=== PATIENT | male | born 1960 | race Two or more races ===

== ENCOUNTER 2017-08-02 09:29 | Emergency (ER) | payer SELFPAY ==
[2017-08-02 09:36] VITALS: RESP 16
--- NOTE | 2017-08-02 09:49 | EDPHY ---
H & P Stated Complaint: etoh/needs med clear for [facility] Time Seen by Provider: 08/02/17 09:49 - Personal History Current Tetanus/Diphtheria Vaccine: No - Medical/Surgical History Hx Asthma: No Hx Chronic Respiratory Disease: No Hx Diabetes: No Hx Cardiac Disease: No Hx Renal Disease: No Hx Cirrhosis: No Hx Alcoholism: Yes Hx HIV/AIDS: No Hx Splenectomy or Spleen Trauma: No Other PMH: denies - Social History Smoking Status: Never smoked Constitutional: Initial Vital Signs Temperature (C) 36.9 C 08/02/17 09:33 Heart Rate 85 08/02/17 09:33 Respiratory Rate 16 08/02/17 09:33 Blood Pressure 142/92 H 08/02/17 09:33 O2 Sat (%) 97 08/02/17 09:33 O2 Delivery Mode Room Air Allergies/Adverse Reactions: No Known Allergies Allergy (Unverified 08/02/17 09:33) Home Medications: Medication Instructions Recorded NK [No Known Home Meds] 08/02/17 Medical Decision Making ED Course/Re-evaluation: CHIEF COMPLAINT: Stomach discomfort HISTORY OF PRESENT ILLNESS: The patient is a 57 year old alcoholic arriving from the [facility] for medical clearance secondary to stomach complaints. He has been drinking heavily for the last week. Patient denies any injuries, denies loss of consciousness, denies any recent trauma. Patient denies co-ingestion. His last drink was two hours ago. He complains of nausea and discomfort, but no abdominal pain. He denies fever, vomiting, diarrhea, or other associated symptoms. REVIEW OF SYSTEMS: A 10 point review of systems was performed and is negative with the exception of the elements mentioned in the history of present illness. PHYSICAL EXAM: General Appearance: Alert, well hydrated, appropriate, and non-toxic appearing. Head: Atraumatic without scalp tenderness or obvious injury Eyes: Pupils equal, round, reactive to light and accommodation, EOMI, no trauma , no injection. Nose: Atraumatic, no rhinorrhea, clear. Throat: Mucus membranes moist. Neck: Supple, nontender, no lymphadenopathy. Respiratory: No retractions, no distress, no wheezes, and no accessory muscle use. Lungs are clear to auscultation bilaterally. Cardiovascular: Regular rate and rhythm, no murmurs, rubs, or gallops. Good capillary refill all extremities. Gastrointestinal: Abdomen is soft, nontender, non-distended, no masses, no rebound, no guarding, no peritoneal signs. Musculoskeletal: Normal active ROM of all extremities, atraumatic. Neurological: Alert, appropriate, and interactive. Nonfocal neuro exam. Skin: No rashes, good turgor, no nodules on palpation. PAST MEDICAL HISTORY: Denies PAST SURGICAL HISTORY: Noncontributory SOCIAL HISTORY: Greenlandic-speaking. Friend at bedside. DIFFERENTIAL DIAGNOSIS: The differential diagnosis for the patient's nausea and vomiting included but was not limited to gastroenteritis, gastritis, appendicitis, and medication side effect. MEDICAL DECISION MAKING: This patient is a 57 year old male presenting from the [facility] with stomach discomfort, mainly nausea. Physical exam unremarkable. The patient is likely suffering from gastritis secondary to alcohol use Administered GI cocktail for symptom relief. The patient is feeling better. He is medically cleared to return to the [facility]. Discussed treatment at the [facility] with the patient and his friend at bedside. Gave prescription for Librium. We will discharge the patient back to the [facility] in stable condition. - Data Points Medications Given: Discontinued Medications Al Hydroxide/Mg Hydroxide (Maalox Susp) 30 ml PO ONCE ONE Stop: 08/02/17 09:59 Last Admin: 08/02/17 10:02 Dose: 30 ml Chlordiazepoxide (Librium 25 Mg Prepack#6) 1 btl TAKEHOME EDNOW ONE Stop: 08/02/17 09:51 Last Admin: 08/02/17 10:02 Dose: 1 btl Hyoscyamine Sulfate (Levsin, Hyomax-Sl) 0.25 mg PO ONCE ONE Stop: 08/02/17 09:59 Last Admin: 08/02/17 10:02 Dose: 0.25 mg Lidocaine (Lidocaine 2% Viscous) 15 ml PO ONCE ONE Stop: 08/02/17 09:59 Last Admin: 08/02/17 10:02 Dose: 15 ml Departure - Departure Disposition: Home, Routine, Self-Care Clinical Impression: Gastritis due to alcohol without hemorrhage Qualifiers: Chronicity: acute Qualified Code(s): K29.20 - Alcoholic gastritis without bleeding Alcoholic intoxication Qualifiers: Complication of substance-induced condition: uncomplicated Qualified Code(s): F10.920 - Alcohol use, unspecified with intoxication, uncomplicated Condition: Good Instructions: Gastritis (ED), Alcohol Withdrawal (ED) Additional Instructions: Return to the [facility] as discussed. Referrals: NONE *PRIMARY CARE P,. [Unknown] - As per Instructions [facility] 24 Hours [Outside] - As per Instructions Print Language: Greenlandic Report Scribed for: Alex Duque Report Scribed by: Ines Scott Date of Report: 08/02/17 Time of Report: 10:00
[2017-08-02] MEDS ORDERED: CHLORDIAZEPOXIDE 25MG PREPK#6 BTL TAKEHOME ONE (09:50)
[2017-08-02] MEDS ORDERED: LIDOCAINE 2% VISCOUS 15 ML UDCUP PO ONE (09:58)
[2017-08-02] MEDS ORDERED: MAG HYDROX/AL HYDROX/SIMETH 30 ML UDCUP PO ONE (09:58)
[2017-08-02] MEDS ORDERED: HYOSCYAMINE SULFATE 0.125 MG TAB PO ONE (09:58)
[2017-08-02 10:12] VITALS: BP 138/87; PULSE 84; TEMP 97.9; O2SAT 98
== END 2017-08-02 10:40 | disposition home or self-care (01) ==
DX: K29.20 Alcoholic gastritis without bleeding (principal); F10.920 Alcohol use, unspecified with intoxication, uncomplicated

== ENCOUNTER 2019-04-14 22:13 | Emergency (ER) | payer OTHER ==
[2019-04-14] MEDS ORDERED: NS 1,000 ML IV ONE ×2 (22:39→23:52)
--- NOTE | 2019-04-14 22:40 | EDPHY ---
H & P Stated Complaint: ETOH Time Seen by Provider: 04/14/19 22:40 HPI/ROS: HPI CHIEF COMPLAINT: Abdominal pain. HISTORY OF PRESENT ILLNESS: Patient is a 59-year-old male, presents emergency room by private vehicle with his brother for abdominal pain. The patient predominantly speaks Jamaican. His brother bedside feels comfortable interpreting. The patient reports that for the past 3 days he has been binge drinking alcohol mainly Tequila. He is not anything to eat in 3 days. He has been drinking beer and Tequila. Multiple shots. Presents emergency room tonight due to upper abdominal pain. Mainly in his epigastric region after drinking alcohol. Denies any vomiting. Denies black tarry stools, denies vomiting blood. No fever. Patient denies any chest pain or shortness of breath. Past Medical History: Alcoholism daily alcohol use. Past Surgical History: No recent surgery Social History: Daily alcohol use. Unemployed. Family History: Noncontributory ROS REVIEW OF SYSTEMS: 10 Systems were reviewed and negative with the exception of the elements mentioned in the history of present illness. Exam Constitutional triage nursing summary reviewed, vital signs reviewed, awake/ alert. Eyes normal conjunctivae and sclera, EOMI, PERRLA. HENT normal inspection, atraumatic, moist mucus membranes, no epistaxis, neck supple/ no meningismus, no raccoon eyes. Respiratory clear to auscultation bilaterally, normal breath sounds, no respiratory distress, no wheezing. Cardiovascular rate normal, regular rhythm, no murmur, no edema, distal pulses normal. Gastrointestinal mild tender palpation epigastric, no rebound, no guarding, normal bowel sounds, no distension, no pulsatile mass. Genitourinary no CVA tenderness. Musculoskeletal no midline vertebral tenderness, full range of motion, no calf swelling, no tenderness of extremities, no meningismus, good pulses, neurovascularly intact. Skin pink, warm, & dry, no rash, skin atraumatic. Neurologic awake, alert and oriented x 3, AAOx3, moves all 4 extremities equally, motor intact, sensory intact, CN II-XII intact, normal cerebellar, normal vision, normal speech. Psychiatric normal mood/affect. Heme/Lymph/Immune no lymphadenopathy. Differential Diagnosis: Differential diagnosis includes but is not limited to and in no particular order: Alcohol-induced gastritis, esophagitis, alcohol intoxication peptic ulcer disease, alcohol-induced hepatitis, Bowel obstruction , appendicitis, gallbladder disease, diverticulitis, colitis, enteritis, perforated viscus, gastritis, GERD, esophagitis, urinary tract infection, pyelonephritis, kidney stones Medical Decision Making: Plan for this patient IV establishment IV fluid bolus , IV Pepcid, basic labs, CT scan abdomen pelvis with IV contrast to rule out acute intra-abdominal process. Re-evaluation: Alcohol 210. CT scan abdomen pelvis with IV contrast faxed me by direct Radiology at time 12: 09 a.m., no acute intra-abdominal pelvic abnormality.. Noted enlarged prostate. 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 I did explain that he has an osseous lesion of his left femur. This needs to be followed up closely with Orthopedics. 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 This is typically benign however does and can transition to malignancy. I will refer him to Orthopedic surgery for this. Additionally can cause pathological fractures. Discussed this at length with him and his brother at bedside. 0100AM: recording studio set up worker was used for review of systems, review of his history, discussion of workup in the emergency room and results of his CT scan result blood work. We used a recording studio set up worker to interpret his CT results with him and explained that he has a tumor of the left leg that needs follow-up. This has been explained in detail using recording studio set up worker. He understands comprehends. Brother at bedside understands as well. I offered the patient to go to detox, however he has declined this and wants to go home. His brother is comfortable with him going home. On re-examination at 1:04 a.m. Is abdomen is soft nontender. He is feeling much better after IV fluids IV Pepcid. 2:37 a.m. I discussed testing results the patient. Patient is requesting multiple times to go home. He is now sober. Answers questions appropriately feels much better after IV fluids IV Pepcid GI cocktail. Discussed at length his results of his CT scan results. He understands. We discussed return precautions return to the emergency room if worsening abdominal pain, fever, vomiting, not doing well. Source: Patient - Personal History Current Tetanus Diphtheria and Acellular Pertussis (TDAP): Unsure - Medical/Surgical History Hx Asthma: No Hx Chronic Respiratory Disease: No Hx Diabetes: No Hx Cardiac Disease: No Hx Renal Disease: No Hx Cirrhosis: No Hx Alcoholism: Yes Hx HIV/AIDS: No Hx Splenectomy or Spleen Trauma: No Other PMH: denies - Social History Smoking Status: Never smoked Constitutional: Initial Vital Signs Temperature (C) 36.5 C 04/14/19 22:18 Heart Rate 111 H 04/14/19 22:18 Respiratory Rate 16 04/14/19 22:18 Blood Pressure 152/80 H 04/14/19 22:18 O2 Sat (%) 93 04/14/19 22:18 O2 Delivery Mode Room Air Allergies/Adverse Reactions: No Known Allergies Allergy (Verified 04/14/19 22:18) Home Medications: Medication Instructions Recorded NK [No Known Home Meds] 08/02/17 Medical Decision Making - Data Points Laboratory Results: Laboratory Results 04/14/19 22:30 04/14/19 22:30 Medications Given: Discontinued Medications Al Hydroxide/Mg Hydroxide (Maalox Susp) 30 ml PO ONCE ONE Stop: 04/15/19 01:00 Last Admin: 04/15/19 01:12 Dose: 30 ml Famotidine (Pepcid) 20 mg IVP EDNOW ONE Stop: 04/14/19 22:48 Last Admin: 04/14/19 23:09 Dose: 20 mg Hyoscyamine Sulfate (Levsin, Hyomax-Sl) 0.25 mg PO ONCE ONE Stop: 04/15/19 01:00 Last Admin: 04/15/19 01:12 Dose: 0.25 mg Sodium Chloride (Ns) 1,000 mls @ 0 mls/hr IV EDNOW ONE; Wide Open PRN Reason: Protocol Stop: 04/14/19 22:40 Last Admin: 04/14/19 22:45 Dose: 1,000 mls Sodium Chloride (Ns) 1,000 mls @ 0 mls/hr IV ONCE ONE PRN Reason: Wide Open Stop: 04/14/19 23:53 Last Admin: 04/15/19 00:26 Dose: 1,000 mls Lidocaine (Lidocaine 2% Viscous) 15 ml PO ONCE ONE Stop: 04/15/19 01:00 Last Admin: 04/15/19 01:12 Dose: 15 ml Point of Care Test Results: Chemistry 04/15/19 00:51 POC Troponin I 0.00 ng/mL ng/mL (0.00-0.08) Departure - Departure Disposition: Home, Routine, Self-Care Clinical Impression: Alcoholic intoxication Qualifiers: Complication of substance-induced condition: uncomplicated Qualified Code(s): F10.920 - Alcohol use, unspecified with intoxication, uncomplicated Abdominal pain Qualifiers: Abdominal location: epigastric Qualified Code(s): R10.13 - Epigastric pain Condition: Good Instructions: Alcohol Intoxication (ED), Abuse of Alcohol (ED), Acute Abdominal Pain (ED) Additional Instructions: 1. Refrain from drinking alcohol. 2. Return to the emergency room if there is worsening symptoms 3. You have a bony lesion on her left femur. This needs to be followed up with Orthopedics. Please call there to make a follow-up appointment. Referrals: NONE *PRIMARY CARE P,. [Primary Care Provider] - As per Instructions Darrel Garcia MD [Medical Doctor] - As per Instructions Print Language: Jamaican
[2019-04-14] MEDS ORDERED: FAMOTIDINE 20 MG/2 ML SDV IVP ONE (22:47)
[2019-04-14 22:54] LABS: PLATELET COUNT 216 10^3/uL (150-400)
[2019-04-14] MEDS ORDERED: IOPAMIDOL (ISOVUE-300) 100 ML BTL ONE (23:14)
[2019-04-15] MEDS ORDERED: LIDOCAINE 2% VISCOUS 15 ML UDCUP PO ONE (00:59)
[2019-04-15] MEDS ORDERED: HYOSCYAMINE SULFATE 0.125 MG TAB PO ONE (00:59)
[2019-04-15] MEDS ORDERED: MAG HYDROX/AL HYDROX/SIMETH 30 ML UDCUP PO ONE (00:59)
[2019-04-15 02:46] VITALS: BP 131/63
== END 2019-04-15 02:47 | disposition home or self-care (01) ==
DX: R10.13 Epigastric pain (principal); F10.129 Alcohol abuse with intoxication, unspecified; Y90.7 Blood alcohol level of 200-239 mg/100 ml
CPT/HCPCS: 84484-ER; 96374; G0480; Q9967